=== PATIENT | female | born 1935 | race Caucasian/White ===

== ENCOUNTER → 2020-06-14 | Outpatient (REF) | payer MEDICARE ==
[2020-07-28 08:08] LABS: Lyme Disease IgG/IgM Antibodie See Separate Report
[2020-08-01 13:25] LABS: ALBUMIN 3.5 GM/DL (3.2-5.2); BILIRUBIN,TOTAL 0.7 MG/DL (0.2-1.0); CALCIUM LEVEL 8.7 MG/DL (8.8-10.2); CREATININE FOR GFR 1.64 MG/DL (0.55-1.30); GLOMERULAR FILTRATION RATE 31.9 (>32); MAGNESIUM LEVEL 2.3 MG/DL (1.8-2.4); POTASSIUM SERUM 4.1 MEQ/L (3.5-5.1); THYROID STIMULATING HORMONE 2.38 uIU/ML (0.358-3.740); TOTAL PROTEIN 6.9 GM/DL (6.4-8.2)
[2020-08-01 18:09] LABS: HEMATOCRIT 29.9 % (36.0-47.0); HEMOGLOBIN 9.5 g/dl (12.0-15.5); MEAN CORPUSCULAR HEMOGLOBIN 30.4 pg (27.0-33.0); MEAN CORPUSCULAR HGB CONC 31.8 g/dl (32.0-36.5); MEAN CORPUSCULAR VOLUME 95.8 fl (80.0-96.0); PLATELET COUNT, AUTOMATED 221 10^3/uL (150-450); RED BLOOD COUNT 3.12 10^6/uL (4.00-5.40); WHITE BLOOD COUNT 5.3 10^3/uL (4.0-10.0)
== END ==
LOC: M LABDRAWC 14:38
PROVIDERS: ATTEND Family Medicine
DX: R53.81 Other malaise (principal); I50.9 Heart failure, unspecified; R25.2 Cramp and spasm

== ENCOUNTER 2021-06-04 16:39 | Inpatient (IN) | payer MEDICARE ==
[~2021-06-04] VITALS: Ht 188 cm; Wt 69.2 kg
--- NOTE | 2021-06-04 17:20 | REPVR ---
PROCEDURE INFORMATION: Exam: CT Head Without Contrast Exam date and time: 06/04/2021 5:01 PM Age: 85 years old Clinical indication: Injury or trauma; Fall; Blunt trauma (contusions or hematomas); Additional info: Fall/blood thinners TECHNIQUE: Imaging protocol: Computed tomography of the head without contrast. Radiation optimization: All CT scans at this facility use at least one of these dose optimization techniques: automated exposure control; mA and/or kV adjustment per patient size (includes targeted exams where dose is matched to clinical indication); or iterative reconstruction. COMPARISON: No relevant prior studies available. FINDINGS: Brain: There are global involutional changes of the brain which are in keeping with the patient's age. There is no acute intracranial hemorrhage or abnormal extra-axial fluid collection identified. There is no intracranial mass effect or shift of midline structures. The king-white differentiation is preserved throughout. Cerebral ventricles: There is no sulcal or ventricular effacement. The basilar cisterns are open. No hydrocephalus. Paranasal sinuses: Visualized sinuses are unremarkable. No fluid levels. Mastoid air cells: Visualized mastoid air cells are well aerated. Bones/joints: No calvarial fracture or destructive osseous lesions are seen. IMPRESSION: No acute intracranial pathology identified by CT. Electronically signed by: Didi Berrios On 06/04/2021 17:19:23 PM
--- NOTE | 2021-06-04 17:26 | REPVR ---
PROCEDURE INFORMATION: Exam: CT Cervical Spine Without Contrast Exam date and time: 06/04/2021 5:01 PM Age: 85 years old Clinical indication: Injury or trauma; Fall; Blunt trauma; Additional info: Fall/blood thinners TECHNIQUE: Imaging protocol: Computed tomography images of the cervical spine without contrast. Radiation optimization: All CT scans at this facility use at least one of these dose optimization techniques: automated exposure control; mA and/or kV adjustment per patient size (includes targeted exams where dose is matched to clinical indication); or iterative reconstruction. COMPARISON: No relevant prior studies available. FINDINGS: Bones/joints: No anterior wedging deformity. No acute lucent fracture lines visualized. No destructive osseous lesions are seen. There are diffuse spondylitic changes of the cervical spine and cervical facet arthropathy. Spondylitic changes are worst at the C4-C5 through C6-C7 levels. There is anterolisthesis at C7-T1. Discs/Spinal canal/Neural foramina: Spondylitic disc bulges cause moderate to severe central stenosis at C4-C5, severe central stenosis at C5-C6, moderate to severe at C6-C7. Neural foraminal stenosis is seen at the C3-C4 through C7-T1 levels. Lungs: There is a large right pleural effusion with compressive atelectasis seen at the right lung apex. IMPRESSION: 1. No acute cervical spinal injury demonstrated by CT. 2. Degenerative changes of the cervical spine, as above. 3. Large right pleural effusion with associated compressive atelectasis. Electronically signed by: Didi Berrios On 06/04/2021 17:26:00 PM
--- NOTE | 2021-06-04 17:43 | REP ---
INDICATION: syncope. COMPARISON: No comparison chest x-ray TECHNIQUE: Two views.. FINDINGS: There is moderate cardiomegaly. There are bilateral pleural effusions right greater than left. Pulmonary vasculature is cephalized. No definite infiltrate is seen. Monitoring electrodes are noted. No acute bony abnormality is seen. IMPRESSION: CHF pattern with bilateral effusions, right greater than left and moderate cardiomegaly. Vascular cephalization.. <Electronically signed by Tramaine Arcos > 06/04/21 [id number]
[2021-06-04 18:05] LABS: BASO # 0.1 10^3/uL (0.0-0.2); BASO % 0.8 % (0.0-1.0); EOS % 0.5 % (0.0-3.0); HEMATOCRIT 37.4 % (36.0-47.0); LYMPH # 0.7 10^3/uL (1.5-5.0); LYMPH % 11.3 % (24.0-44.0); MEAN CORPUSCULAR HEMOGLOBIN 30.7 pg (27.0-33.0); MEAN CORPUSCULAR HGB CONC 32.1 g/dl (32.0-36.5); MEAN CORPUSCULAR VOLUME 95.7 fl (80.0-96.0); MONO # 1.1 10^3/uL (0.0-0.8); MONO % 18.3 % (2.0-8.0); NEUTROPHILS # 4.1 10^3/uL (1.5-8.5); NEUTROPHILS % 68.8 % (36.0-66.0); PLATELET COUNT, AUTOMATED 161 10^3/uL (150-450); RED BLOOD COUNT 3.91 10^6/uL (4.00-5.40); WHITE BLOOD COUNT 5.9 10^3/uL (4.0-10.0)
[2021-06-04 18:41] LABS: RSV AMPLIFICATION NEGATIVE (NEGATIVE)
[2021-06-04 18:41] LABS: CREATININE FOR GFR 1.53 MG/DL (0.55-1.30); GLOMERULAR FILTRATION RATE 34.5 (>32); POTASSIUM SERUM 4.1 MEQ/L (3.5-5.1)
[2021-06-04 18:42] LABS: CALCIUM LEVEL 8.3 MG/DL (8.8-10.2); CK-MB VALUE MASS 4.6 NG/ML (<3.6); FREE T4 1.06 NG/DL (0.76-1.46); MAGNESIUM LEVEL 2.4 MG/DL (1.8-2.4); MB/CK RELATIVE INDEX 1.56 (< OR =4); THYROID STIMULATING HORMONE 1.94 uIU/ML (0.358-3.740); TROPONIN I 0.04 NG/ML (< 0.10)
[2021-06-04] MEDS ORDERED: RASA1TAB PO (18:59)
[2021-06-04] MEDS ORDERED: FLOM0.4C39 PO (18:59)
[2021-06-04] MEDS ORDERED: METO1TAB32 PO (18:59)
[2021-06-04] MEDS ORDERED: SENO8.6T5 PO (18:59)
[2021-06-04] MEDS ORDERED: DONETAB6 PO (18:59)
[2021-06-04] MEDS ORDERED: XARE15TA PO (18:59)
[2021-06-04] MEDS ORDERED: B-12100010 PO (18:59)
[2021-06-04] MEDS ORDERED: TORS5TAB2 PO (18:59)
[2021-06-04] MEDS ORDERED: vitamin d3 PO (18:59)
[2021-06-04] MEDS ORDERED: CARB10TA6 PO (18:59)
[2021-06-04] MEDS ORDERED: FINA5TAB2 PO (18:59)
[2021-06-04 19:44] LABS: D-DIMER QUANT 2025.97 ng/ml (<500)
[2021-06-04] MEDS ORDERED: D31000TA2 PO (20:18)
[2021-06-04 20:19] LABS: ALBUMIN 3.6 GM/DL (3.2-5.2); BILIRUBIN,DIRECT 0.4 MG/DL (0.0-0.2); BILIRUBIN,TOTAL 1.3 MG/DL (0.2-1.0); TOTAL PROTEIN 7.3 GM/DL (6.4-8.2)
[2021-06-04] MEDS ORDERED: TORS20TA2 PO (20:39)
[2021-06-04] MEDS ORDERED: ENOXAPARIN 100MG/1ML SYRINGE (J1650 PER 10MG) SC SCH (21:00)
[2021-06-04] MEDS ORDERED: FUROSEMIDE 100MG/10ML VIAL (J1940) IV ONE (21:00)
[2021-06-04] MEDS ORDERED: SENOKOT S TAB PO PRN (21:05)
[2021-06-04] MEDS ORDERED: dexameTHASONE 20MG/5ML VIAL (J1100 PER 1MG) IV ONE (21:05)
[2021-06-04 21:35] LABS: C REACTIVE PROTEIN QUANTITATIV 1.08 MG/DL (0.00-0.30)
--- NOTE | 2021-06-04 22:07 | HPEPDOC ---
[facility] Medical History & Physical Date of Admission Jun 04, 2021 Date of Service: Jun 04, 2021 History and Physical CHIEF COMPLAINT: Scratchy throat fever 101 HISTORY OF PRESENT ILLNESS: 85-year-old male with history of Parkinson's disease congestive heart failure chronic atrial flutter mitral valve regurgitation chronic kidney disease stage III bilateral pleural effusions needing thoracentesis was in her usual state of health until 2 weeks ago when he was exposed to his son-in-law with coronavirus during a family reunion now presents with 2-day history of fever 101 scratchy throat and exertional dyspnea without chest pain nausea vomiting abdominal pain diarrhea but admits to dry mouth loss of taste and constipation patient has had increasing weakness which he attributed to his Parkinson's he fell and tripped on the steps the other day while he got his foot caught on something and had a fainting spell. He currently is visiting for the summer and lives in his camp near [facility] in [facility] but usually lives in [place], [place]. patient does have a history of congestive heart failure and chronic kidney disease according to the patient his primary care had decrease his torsemide from 40 mg daily to 30 mg due to worsening renal dysfunction he denies any paroxysmal nocturnal dyspnea he usually sleeps on his back with 1-2 pillows he has not had any lower extremity edema his dry weight is usually 154 pounds he does not keep to a salt or fluid restriction but he is compliant with his medications. In the emergency room patient was found to be positive for coronavirus he was saturating 95 to 96% on room air chest x-ray showed increased vascular distribution CHF pattern, CT head negative for acute intracranial abnormality CT cervical spine no acute fracture or dislocation. Patient had increased inflammatory markers and is being admitted as an inpatient for 2 midnights for coronavirus, CHF exacerbation with unknown ejection fraction, large right pleural effusion requiring thoracentesis. 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 REVIEW OF SYSTEMS: 10 point review of systems negative aside from positive findings in HPI HOME MEDICATIONS: Please see below. PHYSICAL EXAMINATION: VITAL SIGNS: See below GENERAL APPEARANCE: No distress able to speak in full sentences without conversational dyspnea no use of accessory respiratory muscles no cyanosis icterus or jaundice HEENT: Face is symmetric tongue is midline positive JVD no carotid bruit moist mucous membranes no cervical lymphadenopathy or thyromegaly CARDIOVASCULAR: S1-S2 irregularly irregular systolic ejection murmur at the apex LUNGS: Decreased breath sounds right with dullness to percussion decrease vocal fremitus on the right Egophony noted on the right. Bilateral rales right greater than left . ABDOMEN: Positive bowel sounds soft nontender nondistended no hepatosplenomegaly no rebound or guarding EXTREMITIES: No pitting edema bilaterally no cyanosis or clubbing LABORATORY DATA: See below. IMAGING: See below MICROBIOLOGY: Please see below. ASSESSMENT: 85-year-old full code with history of congestive heart failure unknown ejection fraction Parkinson's chronic A. fib a flutter mitral valve regurgitation chronic kidney disease stage III bilateral pleural effusions requiring thoracentesis in the past presents to the emergency room with 2-day history of a scratchy throat, loss of taste, and fever of 101 with recent exposure 2 weeks ago to a son-in-law with coronavirus during a family reunion. patient is visiting the area and currently lives in a camper near [facility] in [place]. Patient is being admitted as an inpatient for the following acute issues: Coronavirus 19 infection -Isolation precautions. Titrate oxygen to keep saturations above 90%. IV Decadron 6 mg daily, IV remdesivir, patient may be restarted on his Xarelto after thoracentesis for large right pleural effusion, aspirin 81 mg daily after thoracentesis, monitor inflammatory markers. Acute on chronic congestive heart failure exacerbation with unknown ejection fraction -Obtain records from patient's primary care physician in [place], [place]. -Lasix intravenously every 6 hourly 2 L fluid restriction strict I's and O's and daily weights monitor patient's creatinine daily and adjust Lasix accordingly -Cycle cardiac markers every 6 hourly to rule out acute coronary syndrome. Check two-dimensional echocardiogram. Chronic kidney disease stage III -Obtain records from patient's primary care physician -Avoid nephrotoxins renally dose all medications monitor patient's creatinine daily while being diuresed Chronic atrial fibrillation -Rate controlled. Hold Xarelto until patient's thoracentesis is completed tomorrow. May resume Xarelto and low-dose aspirin after thoracentesis -Telemetry monitoring. Chronic mitral valve regurgitation -2D echo Large right pleural effusion secondary to CHF exacerbation requiring thoracentesis -Held patient's Xarelto until thoracentesis is completed -CSF fluid analysis Diet: 2 g sodium renal diet. 2 L fluid restriction CODE STATUS: Full code Healthcare proxy daughter Catrachita Connelly DVT prophylaxis: Compression stockings. May resume Xarelto after thoracentesis is completed. Vital Signs Vital Signs Date Time Temp Pulse Resp B/P (MAP) Pulse Ox O2 Delivery O2 Flow Rate FiO2 06/04/21 21:24 85 93 Room Air 06/04/21 21:00 119/70 (86) 06/04/21 16:40 98.1 20 Laboratory Data Labs 24H Laboratory Tests 2 06/04/21 17:09: Immature Granulocyte % (Auto) 0.3, Neutrophils (%) (Auto) 68.8H, Lymphocytes (%) (Auto) 11.3L, Monocytes (%) (Auto) 18.3H, Eosinophils (%) (Auto) 0.5, Basophils (%) (Auto) 0.8, Neutrophils # (Auto) 4.1, Lymphocytes # (Auto) 0.7L, Monocytes # (Auto) 1.1H, Eosinophils # (Auto) 0.0, Basophils # (Auto) 0.1, Nucleated Red Blood Cells % (auto) 0.0, Anion Gap 6L, Glomerular Filtration Rate 34.5, Calcium Level 8.3L, Magnesium Level 2.4, Ferritin 151, Total Bilirubin 1.3H, Direct Bilirubin 0.4H, Aspartate Amino Transf (AST/SGOT) 55H, Alanine Aminotransferase (ALT/SGPT) 33, Alkaline Phosphatase 129H, Lactate Dehydrogenase 331H, Total Creatine Kinase 294H, Creatine Kinase MB 4.6H, Creatine Kinase MB Relative Index 1.56, Troponin I 0.04, C-Reactive Protein, Quantitative 1.08H, DC-Blp-Z-Type Natriuretic Peptide 9038H, Total Protein 7.3, Albumin 3.6, Albumin/Globulin Ratio 1.0L, Thyroid Stimulating Hormone (TSH) 1.940, Free Thyroxine 1.06 06/04/21 17:36: Fibrinogen 410, D-Dimer, Quantitative 2025.97H, Lactic Acid Level 1.9, Coronavirus (COVID-19)(PCR) POSITIVEA, Influenza Type A (RT-PCR) NEGATIVE, Influenza Type B (RT-PCR) NEGATIVE, Respiratory Syncytial Virus (PCR) NEGATIVE 06/04/21 19:40: Urine Color YELLOW, Urine Appearance CLEAR, Urine pH 6.0, Urine Specific [place] 1.008, Urine Protein NEGATIVE, Urine Glucose (UA) NEGATIVE, Urine Ketones NEGATIVE, Urine Blood 1+H, Urine Nitrite NEGATIVE, Urine Bilirubin NEGATIVE, Urine Urobilinogen 0.2, Urine Leukocyte Esterase NEGATIVE, Urine WBC (Auto) 0, Urine RBC (Auto) 3, Urine Hyaline Casts (Auto) 2, Urine Bacteria (Auto) NEGATIVE, Urine Squamous Epithelial Cells 0, Urine Sperm (Auto) , Procalcitonin <0.05 CBC/BMP Laboratory Tests 06/04/21 17:09 Microbiology Microbiology 06/04/21 Blood Culture, Received Pending 06/04/21 Blood Culture, Received Pending Home Medications Scheduled Carbidopa/Levodopa (Carbidopa-Levo 10-100 mg Odt) 1 Each Tab.rapdis, 2 TAB PO QID 0700, 1200, 1700, 2200 Cholecalciferol (Vitamin D3) (Vitamin D3) 1,000 Unit Tablet, 2,000 UNITS PO DAILY Cyanocobalamin (Vitamin B-12) (Vitamin B-12) 1,000 Mcg Capsule, 1,000 MCG PO DAILY Donepezil Hcl (Donepezil HCl Odt) 10 Mg Tab.rapdis, 10 MG PO QHS Finasteride (Finasteride) 5 Mg Tablet, 5 MG PO DAILY Metoprolol Succinate (Metoprolol Succinate) 25 Mg Tab.er.24h, 25 MG PO QHS Rasagiline Mesylate (Rasagiline Mesylate) 1 Mg Tablet, 1 MG PO DAILY Rivaroxaban (Xarelto) 15 Mg Tablet, 15 MG PO QPM @ 1700 Tamsulosin HCl (Flomax) 0.4 Mg Capsule, 0.4 MG PO QHS Torsemide (Torsemide) 20 Mg Tablet, 30 MG PO DAILY Scheduled PRN Sennosides (Senokot) 8.6 Mg Tablet, 8.6 MG PO DAILY PRN for CONSTIPATION Allergies Coded Allergies: No Known Drug Allergies (Verified Allergy, Unknown, 06/04/21) A-FIB/CHADSVASC A-FIB History Current/History of A-Fib/PAF?: Yes Current PO Anticoag Therapy: No Age/Risk Factor Scoring CHADSVASC: CHADSVASC Response (Comments) Value Age Risk Factor Age >/= 75 years old 2 Gender Risk Factor Male 0 Hx of CHF Yes 1 Hx of HTN Yes 1 Hx of Stroke/TIA/or VTE No 0 Hx of Diabetes No 0 Hx of Vascular Disease No 0 Total 4 Treatment Treatment ordered: NONE Reason Anticoagulant not given: Recent/upcomin procedure IZZY MCKENNA MD Jun 04, 2021 21:58
[2021-06-04 22:40] LABS: INR 1.55; PARTIAL THROMBOPLASTIN TIME 33.9 SECONDS (24.2-38.5); PROTHROMBIN TIME 18.9 SECONDS (12.5-14.3)
[2021-06-04] MEDS ORDERED: REMDESIVIR 200 MG in NS 250 ML IV ONE (23:00)
[2021-06-04 23:10] VITALS: BP 123/77
[2021-06-05] VITALS (33 sets, daily range): BP systolic 70–168; BP diastolic 47–106; O2SAT 92–99
[2021-06-05] MEDS: TAMSULOSIN 0.4 MG CAP PO SCH ×2 (00:36→22:29)
[2021-06-05] MEDS: DONEPEZIL 5 MG TAB PO SCH ×2 (00:36→22:29)
[2021-06-05] MEDS: SINEMET 10-100 MG TAB PO SCH ×5 (00:36→22:29)
[2021-06-05] MEDS: METOPROLOL SUCC *XL* 25MG TAB (TopROL *XL*) PO SCH ×2 (00:36→21:00)
[2021-06-05] MEDS ORDERED: SODIUM CHLORIDE 0.9% INJ 10 ML SYR IV ONE (01:00)
[2021-06-05 05:00] LABS: BASO % 0.4 % (0.0-1.0); HEMATOCRIT 35.7 % (42.0-52.0); HEMOGLOBIN 11.5 g/dl (13.5-17.5); LYMPH # 0.4 10^3/uL (1.5-5.0); LYMPH % 8.2 % (24.0-44.0); MEAN CORPUSCULAR HEMOGLOBIN 30.5 pg (27.0-33.0); MEAN CORPUSCULAR HGB CONC 32.2 g/dl (32.0-36.5); MEAN CORPUSCULAR VOLUME 94.7 fl (80.0-96.0); MONO # 0.4 10^3/uL (0.0-0.8); MONO % 7.5 % (2.0-8.0); NEUTROPHILS # 3.9 10^3/uL (1.5-8.5); NEUTROPHILS % 83.5 % (36.0-66.0); PLATELET COUNT, AUTOMATED 155 10^3/uL (150-450); RED BLOOD COUNT 3.77 10^6/uL (4.30-6.10); WHITE BLOOD COUNT 4.6 10^3/uL (4.0-10.0)
[2021-06-05 05:30] LABS: CALCIUM LEVEL 8.1 MG/DL (8.8-10.2); CK-MB VALUE MASS 3.7 NG/ML (<3.6); CREATININE FOR GFR 1.48 MG/DL (0.70-1.30); GLOMERULAR FILTRATION RATE 48.3 (>35); MAGNESIUM LEVEL 2.5 MG/DL (1.8-2.4); MB/CK RELATIVE INDEX 1.47 (< OR =4); POTASSIUM SERUM 3.8 MEQ/L (3.5-5.1); TROPONIN I 0.04 NG/ML (< 0.10)
--- NOTE | 2021-06-05 06:32 | ECGEPIP ---
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
[2021-06-05] MEDS: FUROSEMIDE 40MG/4ML VIAL (J1940) IV SCH ×2 (08:44→16:08)
[2021-06-05] MEDS: VITAMIN D 1,000 INTERNATIONAL UNITS TABLET PO SCH (08:48)
[2021-06-05] MEDS: dexameTHASONE 20MG/5ML VIAL (J1100 PER 1MG) IV SCH (08:48)
[2021-06-05] MEDS: CYANOCOBALAMIN 500 MCG TAB PO SCH (08:49)
[2021-06-05] MEDS: FINASTERIDE 5 MG TAB PO SCH (08:50)
[2021-06-05] MEDS ORDERED: ASPIRIN 81MG ENTERIC TABLET PO SCH (09:00)
[2021-06-05] MEDS ORDERED: TORSEMIDE 20 MG TAB PO SCH (09:00)
[2021-06-05] MEDS ORDERED: ALBUTEROL SULFATE 2.5 MG/0.5 ML INH NEB SOLN INH PRN (11:15)
[2021-06-05] MEDS ORDERED: NS 1,000 ML IV SCH (11:15)
[2021-06-05] MEDS ORDERED: methylPREDNISolone 125MG 2ML VIAL IV PRN (11:15)
[2021-06-05] MEDS ORDERED: CASIRIVIMAB (REGN10933) 600 MG, IMDEVIMAB (REGN10987) 600 MG in NS 250 ML IV ONE (11:15)
[2021-06-05] MEDS ORDERED: EPINEPHrine INJ 1 MG/ML 1ML AMP IM PRN (11:15)
[2021-06-05] MEDS ORDERED: diphenhydrAMINE 50MG/ML VIAL (J1200) IV PRN (11:15)
[2021-06-05] MEDS ORDERED: ALBUTEROL 90 MCG/ACT 8GM HFA INHALER INH PRN (11:15)
--- NOTE | 2021-06-05 12:26 | IPNPDOC ---
Text Note Date of Service The patient was seen on 06/05/21. NOTE Subjective: Patient is an 85-year-old male history of Parkinson's disease, CHF, chronic atrial flutter, mitral valve regurgitation, chronic kidney disease stage III bilateral pleural effusions needing thoracentesis who was in his usual state of health until 2 weeks ago when he was exposed to his son-in-law with COVID-19 during a family reunion. Patient now presents with a 2-day history of fever of 101 with scratchy throat exertional dyspnea without chest pain. Patient was found to be positive for COVID-19. Patient was saturating 95 to 96% and chest x-ray showed increased vascular congestion. Patient was diagnosed with CHF exacerbation with an unknown ejection fraction. Patient is a large right pleural effusion. Patient is doing well but says when he gets up and walks around, he does feel very short of breath. Review of systems: General: Patient denies fevers HEENT: Patient denies headaches Cardiovascular: Patient denies chest pain Respiratory: Patient denies shortness of breath at rest but does report shortness of breath with exertion GI: Patient denies abdominal pain, nausea, vomiting, diarrhea : Patient denies increased frequency or pain with urination Extremities: Patient denies swelling or pain in extremities Neurological: Patient denies numbness or tingling in legs Physical exam: Vitals: See below General: Alert and oriented male patient who was sitting in bed when I walked in the room. Patient did not appear to be in any acute distress. HEENT: Normocephalic, atraumatic, moist mucous membranes. Neck: No lymphadenopathy or thyromegaly Cardiac: Regular rate and rhythm, no murmurs, normal S1, normal S2 Pulm: Crackles heard in the bilateral bases. Diminished lung sounds in the right base. Dullness to percussion in the right lower lung field. Tympanic to percussion upper lung velasquez on the right and entire lung velasquez on the left. Abd: Nondistended, nontender to palpation, normal bowel sounds Ext: No edema bilateral lower extremities Labs: See below Imaging: No new imaging has been performed Assessment/plan: 85-year-old male with a history of congestive heart failure with unknown ejection fraction who presents to the hospital with worsening dyspnea was thought to be secondary to a CHF exacerbation and COVID-19 1. Acute exacerbation of congestive heart failure with unknown ejection fraction. Echocardiogram was ordered and was performed today we are waiting on the read. Patient will continue with IV diuresis at this time. Patient will work with physical therapy and we will continue to monitor the patient. C ardiology records have been requested 2. COVID-19 infection. Isolation precautions have been placed. IV Decadron was started with IV remdesivir. Patient's Xarelto has been held until his thoracentesis can be performed. After this, the Xarelto will be started. Once the patient is discharged, he will be able to receive monoclonal antibodies for treatment of COVID-19. 3. Large right pleural effusion. Thoracentesis will be performed today. Orders are already in for analysis of the fluid. 4. Chronic atrial fibrillation. Rate controlled. Xarelto on hold until after thoracentesis. Continue telemetry monitoring. 5. Chronic kidney disease stage III. Avoid nephrotoxic agents and we will continue to monitor the patient's creatinine. DVT Prophylaxis: Teds and sequentials until Xarelto is restarted Disposition: Pending clinical improvement possible discharge next 24 to 48 hours VS,Nickbone, I+O VS, Fishbone, I+O Laboratory Tests 06/04/21 17:09 06/05/21 04:40 Vital Signs Date Time Temp Pulse Resp B/P (MAP) Pulse Ox O2 Delivery O2 Flow Rate FiO2 06/05/21 08:00 96 Room Air 06/05/21 08:00 97.2 68 20 109/67 (81) 06/05/21 04:00 2.0 I&O- Last 24 Hours up to 6 AM 06/05/21 06:00 Intake Total 100 ml Output Total 1450 ml Balance -1350 ml BRANDY SAHU DO Jun 05, 2021 12:26
[2021-06-05] MEDS ORDERED: LIDOCAINE 1% MDV 20ML VIAL As Ordered ONE (16:26)
--- NOTE | 2021-06-05 17:50 | REP ---
INDICATION: S/P Right Thoracentesis for Pleural Effusion. COMPARISON: PA lateral chest 06/04/2021 TECHNIQUE: AP portable seated FINDINGS: Exam performed after thoracentesis of 600 cc on the right. There is a smaller effusion compared to the examination yesterday. Left effusion is unchanged. There is no pneumothorax or pneumomediastinum. Some bibasilar atelectatic changes are again seen. Heart size mildly enlarged there is left atrial and ventricular enlargement. The aorta is mildly tortuous. No aneurysm. Airway intact bones unremarkable. IMPRESSION: 1. Status post right thoracentesis with 600 cc removed and visibly smaller right effusion. A left effusion is seen and unchanged from yesterday, smaller than the a right than an now. 2. Heart mildly enlarged with some venous hypertension but no steffi edema. No other new finding or interval change. 3. No right-sided pneumothorax <Electronically signed by Nitish Sotomayor > 06/05/21 [id number]
[2021-06-05 18:09] LABS: PH BODY FLUID 7.754 UNITS (NOT ESTABLISHED); SOURCE, BODY FLUID pH PLEURAL
[2021-06-05 18:31] LABS: AMYLASE, BODY FLUID 52 U/L (NOT ESTABLISHED); CHOLESTEROL, BODY FLUID < 50 MG/DL (NOT ESTABLISHED); LDH, BODY FLUID 76 U/L (NOT ESTABLISHED); SOURCE, BODY FLUID ALBUMIN PLEURAL; SOURCE, BODY FLUID AMYLASE PLEURAL; SOURCE, BODY FLUID CHOL PLEURAL; SOURCE, BODY FLUID GLUCOSE PLEURAL; SOURCE, BODY FLUID LDH PLEURAL; SOURCE, BODY FLUID TOT PROTEIN PLEURAL; SOURCE, BODY FLUID TRIG PLEURAL; TOTAL PROTEIN, BODY FLUID 1.7 G/DL (NOT ESTABLISHED); TRIGLYCERIDE, BODY FLUID 4 MG/DL (NOT ESTABLISHED)
[2021-06-05 18:43] LABS: PLEURAL FL COLOR PALE YELLOW (COLORLESS); SOURCE, BODY FLUID PLEURAL
[2021-06-05 18:44] LABS: APPEARANCE, BODY FLUID CLEAR (CLEAR)
[2021-06-05 19:22] LABS: APPEARANCE, URINE CLEAR (CLEAR); BACTERIA, URINE AUTO NEGATIVE (NEGATIVE); BILIRUBIN, URINE AUTO NEGATIVE (NEGATIVE); BLOOD, URINE BLOOD 2+ (NEGATIVE); COLOR, URINE STRAW (YELLOW); GLUCOSE, URINE (UA) AUTO NEGATIVE (NEGATIVE); KETONE, URINE AUTO NEGATIVE (NEGATIVE); LEUKOCYTE ESTERASE, URINE AUTO NEGATIVE (NEGATIVE); MUCUS, URINE SMALL (NEGATIVE); NITRITE, URINE AUTO NEGATIVE (NEGATIVE); PROTEIN, URINE AUTO NEGATIVE (NEGATIVE); RBC, URINE AUTO 128 /HPF (0-3); SPECIFIC GRAVITY URINE AUTO 1.006 (1.002-1.035); SQUAMOUS EPITHELIAL CELL UR AU 0 /HPF (0-6); UROBILINOGEN, URINE AUTO 0.2 mg/dL (0.0-2.0); WBC, URINE AUTO 2 /HPF (0-3)
[2021-06-05] MEDS ORDERED: NOREPINEPHRINE 4 MG/4 ML AMP As Ordered ONE (19:55)
[2021-06-05] MEDS ORDERED: NOREPINEPHRINE BITARTRATE 8 MG in D5W 492 ML IV SCH (20:00)
[2021-06-05] MEDS ORDERED: RIVAROXABAN 15 MG TAB (XARELTO) PO SCH (21:00)
--- NOTE | 2021-06-05 22:21 | REPVR ---
PROCEDURE INFORMATION: Exam: XR Chest Exam date and time: 06/05/2021 9:38 PM Age: 85 years old Clinical indication: Device placement; Other: Central line placement TECHNIQUE: Imaging protocol: XR of the chest. Views: 1 view. COMPARISON: ND PORTABLE CHEST X-RAY 06/05/2021 5:12 PM FINDINGS: Lungs: Unremarkable. No consolidation. Pleural spaces: Bilateral pleural effusions unchanged in comparison to the exam performed earlier in the day. No pneumothorax. Heart/Mediastinum: Probable cardiomegaly. Vasculature: Right internal jugular line tip located in the superior vena cava. Bones/joints: The spine demonstrates moderate degenerative changes. Osteoporosis. IMPRESSION: 1. Bilateral pleural effusions unchanged in comparison to the exam performed earlier in the day. 2. Probable cardiomegaly. Electronically signed by: Georges Garzon On 06/05/2021 22:20:51 PM
[2021-06-05] MEDS: REMDESIVIR 100 MG in NS 250 ML IV SCH (22:50)
[2021-06-05] MEDS: NOREPINEPHRINE BITARTRATE 8 MG in D5W 492 ML IV SCH ×2 (23:15→23:55)
[2021-06-06] VITALS (18 sets, daily range): BP systolic 71–134; BP diastolic 50–86; O2SAT 95–100
[2021-06-06] MEDS: SODIUM CHLORIDE 0.9% INJ 10 ML SYR IV SCH (00:11)
[2021-06-06] MEDS: SINEMET 10-100 MG TAB PO SCH ×4 (06:09→21:35)
[2021-06-06 06:28] LABS: HEMATOCRIT 34.6 % (42.0-52.0); HEMOGLOBIN 11.3 g/dl (13.5-17.5); LYMPH # 0.5 10^3/uL (1.5-5.0); LYMPH % 5.8 % (24.0-44.0); MEAN CORPUSCULAR HEMOGLOBIN 30.6 pg (27.0-33.0); MEAN CORPUSCULAR HGB CONC 32.7 g/dl (32.0-36.5); MEAN CORPUSCULAR VOLUME 93.8 fl (80.0-96.0); MONO # 0.9 10^3/uL (0.0-0.8); MONO % 9.8 % (2.0-8.0); NEUTROPHILS # 7.5 10^3/uL (1.5-8.5); NEUTROPHILS % 84.1 % (36.0-66.0); PLATELET COUNT, AUTOMATED 164 10^3/uL (150-450); RED BLOOD COUNT 3.69 10^6/uL (4.30-6.10); WHITE BLOOD COUNT 8.9 10^3/uL (4.0-10.0)
[2021-06-06 06:38] LABS: INR 1.31; PROTHROMBIN TIME 16.6 SECONDS (12.5-14.3)
[2021-06-06 06:39] LABS: PARTIAL THROMBOPLASTIN TIME 32.5 SECONDS (24.2-38.5)
[2021-06-06 06:53] LABS: BLOOD UREA NITROGEN 37 MG/DL (7-18); CARBON DIOXIDE LEVEL 33 MEQ/L (21-32); CHLORIDE LEVEL 103 MEQ/L (98-107); CREATININE FOR GFR 1.14 MG/DL (0.70-1.30); GLOMERULAR FILTRATION RATE > 60.0 (>35); GLUCOSE, FASTING 94 MG/DL (70-100); POTASSIUM SERUM 3.5 MEQ/L (3.5-5.1); SODIUM LEVEL 142 MEQ/L (136-145)
[2021-06-06 06:54] LABS: ALBUMIN 2.7 GM/DL (3.2-5.2); ALT/SGPT 23 U/L (12-78); BILIRUBIN,DIRECT 0.3 MG/DL (0.0-0.2); BILIRUBIN,TOTAL 0.7 MG/DL (0.2-1.0); CALCIUM LEVEL 8.6 MG/DL (8.8-10.2); CPK CREATINE PHOSPHOKINASE 229 U/L (39-308); FERRITIN 159 NG/ML (26-388); LDH LACTATE DEHYDROGENASE 293 U/L (87-241); MAGNESIUM LEVEL 2.3 MG/DL (1.8-2.4); NT-PRO BNP 9862 PG/ML (<450); TOTAL PROTEIN 6.1 GM/DL (6.4-8.2); TROPONIN I 0.04 NG/ML (< 0.10)
[2021-06-06] MEDS: dexameTHASONE 20MG/5ML VIAL (J1100 PER 1MG) IV SCH (08:30)
[2021-06-06] MEDS: CYANOCOBALAMIN 500 MCG TAB PO SCH (08:31)
[2021-06-06] MEDS: VITAMIN D 1,000 INTERNATIONAL UNITS TABLET PO SCH (08:31)
[2021-06-06] MEDS: FINASTERIDE 5 MG TAB PO SCH (08:32)
[2021-06-06] MEDS ORDERED: FUROSEMIDE 40MG/4ML VIAL (J1940) IV SCH (09:00)
--- NOTE | 2021-06-06 09:16 | REP ---
INDICATION: right pleural effusion. COMPARISON: None. TECHNIQUE: The procedure was performed under the direct supervision of Dr. Pina. The procedure was performed in the ICU at the bedside. The risks and benefits of the procedure were explained to the patient and informed consent was obtained. The right pleural effusion was localized using ultrasound guidance. The skin was prepped and draped in a sterile fashion. 4 mL of 1% lidocaine was used as a local anesthetic. An 8 Spanish multi side hole catheter was inserted using trocar technique. 600 mL of yellow fluid was withdrawn with a sample sent to the lab for analysis. At this point the patient's blood pressure dropped and his O2 saturations dropped to approximately 85%. The procedure was then discontinued. FINDINGS: None IMPRESSION: Ultrasound-guided right thoracentesis yielding 600 mL of yellow fluid. <Electronically signed by Heriberto Frias > 06/06/21 0809 <Electronically signed by Jose Pina > 06/06/21 0916
--- NOTE | 2021-06-06 11:24 | RO ---
OPERATIVE NOTE DATE OF OPERATION: 06/04/2021 PREOPERATIVE DIAGNOSIS: IV access needed for fluid management/vasopressors. POSTOPERATIVE DIAGNOSIS: IV access needed for fluid management/vasopressors. PROCEDURE: Right internal jugular vein central line placement. SURGEON: Juan Ramon Mckeon M.D. ANESTHESIA: Local lidocaine. BRIEF PROCEDURE SUMMARY: The patient was prepped and draped in the usual sterile fashion. The patient was placed in the Trendelenburg position. Finder needle was placed into the internal jugular vein and the wire passed down this without difficulty. Dilator and then triple-lumen was placed over the top of this. It was sutured in place at 17 cm. Postoperative chest x-ray reveals good placement. All ports were aspirated and flushed without difficulty. Dry sterile dressings were applied.
--- NOTE | 2021-06-06 13:45 | ECHO ---
ECHOCARDIOGRAM DATE OF PROCEDURE: 06/05/2021 Age: Gender: Height: 180 cm Weight: 69 kg REFERRING PHYSICIAN: Dr. Madisyn Mcgregor INDICATION: Heart failure, unspecified, COVID-19. 2D MEASUREMENTS: Ventricular septum 2.28 cm Posterior wall 2.00 cm Left ventricle diastole 3.4 cm Left atrium 4.1 cm Left atrial volume index 40 Aortic root 3.4 cm Right ventricle 2.0 cm Inferior vena cava 1.9 cm with approximately 50% respiratory variation DOPPLER MEASUREMENTS: No aortic stenosis. No aortic regurgitation. Aortic valve velocity 129 cm/s LVOT velocity 98.4 cm/s LVOT VTI 17.9 cm Moderate tricuspid regurgitation. No mitral stenosis. Mitral E velocity 78.4 cm/s Mitral A velocity 35.6 cm/s Mitral deceleration time 209 msec Very mild tricuspid regurgitation. Estimated right ventricle systolic pressure 37 mmHg Estimated right atrial pressure 37 mmHg No pulmonic regurgitation. Pulmonary acceleration time 103 msec MITRAL ANNULAR TISSUE DOPPLER: Not performed. DESCRIPTION: Rhythm was sinus. Image quality was fair. This was a 2D, M mode, color flow Doppler, and pulse wave Doppler examination. CONCLUSIONS: 1. Severe concentric left ventricular hypertrophy. Subtle hypokinesis of the basal and mid left ventricular (LV) segments with normal contraction of the left ventricle apex. Normal overall LV systolic function. Left ventricular ejection fraction (LVEF) 70% by visual assessment. Reduced peak longitudinal strain in the basal and mid LV segments and normal at the apical level. Restricted LV diastolic filling pattern (grade 3 or grade 4 LV diastolic dysfunction). 2. Severe left atrial dilatation by left atrial volume index. 3. Normal right ventricle size. Severe hypertrophy of the right ventricle free wall. Normal right ventricle systolic function, suggestive of mild elevation of pulmonary artery systolic pressure and estimated right ventricle systolic pressure. Severe right atrial dilatation. 4. Mild mitral annular calcification. Moderate mitral regurgitation. No mitral stenosis. 5. Pleural effusions. 6. Tiny pericardial effusion. 7. Mild aortic valve sclerosis of a 3-cuspid aortic valve. No aortic regurgitation.
--- NOTE | 2021-06-06 13:50 | IPNPDOC ---
Text Note Date of Service The patient was seen on 06/06/21. NOTE Subjective: 85-year-old male with a history of Parkinson's disease, CHF, chronic atrial flutter, mitral valve regurgitation, chronic kidney disease stage III, bilateral pleural effusions needing thoracentesis who presented to the emergency department with CHF exacerbation and was found to be COVID-19 positive. Patient had an episode of hypotension overnight that required the patient to have a central line placed with Levophed being started. Patient was on Levophed for ab out 20 minutes before this was discontinued as blood pressure responded and became hypertensive. Patient has had a few episodes of hypotension throughout the morning today but is otherwise feeling much better. Patient was having some burning with urination and some gross blood but this has also improved. Review of systems: General: Patient denies fevers HEENT: Patient denies headaches Cardiovascular: Patient denies chest pain Respiratory: Patient denies shortness of breath, cough GI: Patient denies abdominal pain, nausea, vomiting, diarrhea : Patient denies increased frequency or pain with urination Extremities: Patient denies swelling or pain in extremities Neurological: Patient denies numbness or tingling in legs Physical exam: Vitals: See below General: Alert and oriented male patient who was laying in bed when I walked in the room. Patient did not appear to be in any acute distress. HEENT: Normocephalic, atraumatic, moist mucous membranes. Neck: No lymphadenopathy or thyromegaly Cardiac: Regular rate and rhythm, no murmurs, normal S1, normal S2 Pulm: Clear to auscultation bilaterally. No wheezes, rhonchi, rales Abd: Nondistended, nontender to palpation, normal bowel sounds Ext: No edema bilateral lower extremities Labs: See below Imaging: Chest x-ray performed on 06/03/2021 status post his right thoracentesis was reported to show status post right thoracentesis with 600 cc removed and visibly smaller right effusion. A left effusion is seen unchanged from yesterd ay, smaller than the right. Heart mildly enlarged some venous hypertension but no steffi edema. No new finding or interval change. No right-sided pneumothorax. Chest x-ray performed on 06/03/2021 status post central line placement was aborted show bilateral pleural effusions unchanged comparison to exam performed earlier in the day. Probable cardiomegaly. Assessment/plan: 85-year-old male with history of congestive heart failure with unknown ejection fraction presented to hospital with worsening dyspnea thought to be secondary to a congestive heart failure exacerbation and COVID-19 1. Acute exacerbation of congestive heart failure with unknown ejection fraction. Echocardiogram was performed yesterday and the read is still pending. Patient had some episodes of hypotension which may be secondary to overdiuresis. Diuretics will be held at this time. Patient will work with physical therapy. 2. Hypotension. This may be due to overdiuresis and/or the patient's Parkinson's disease. We will continue to monitor at this time. Central line is in place if vasopressors are necessary. 3. COVID-19 infection. Isolation precautions in place. IV Decadron and IV remdesivir have been started. Once the patient is able to be discharged in the hospital he will receive monoclonal antibody treatments. 4. Large right pleural effusion, resolved. Thoracentesis performed yesterday and showed a transudative effusion. 5. Chronic atrial fibrillation. Rate controlled. Xarelto restarted. 6. Chronic kidney disease stage III. Avoid nephrotoxic agents. DVT Prophylaxis: Fully anticoagulated with Xarelto Disposition: Possible discharge tomorrow VS,Aminata, I+O VS, Aminaat, I+O Laboratory Tests 06/06/21 06:07 Vital Signs Date Time Temp Pulse Resp B/P (MAP) Pulse Ox O2 Delivery O2 Flow Rate FiO2 06/06/21 13:08 97.5 79 131/76 (94) 06/06/21 12:03 17 94 Room Air 06/05/21 04:00 2.0 I&O- Last 24 Hours up to 6 AM 06/06/21 06:00 Intake Total 2030 ml Output Total 2335 ml Balance -305 ml BRANDY SAHU DO Jun 06, 2021 13:50
[2021-06-06 17:08] LABS: MYCOPLASMA PNEUMONIAE IgG 1326 U/mL (0-99); MYCOPLASMA PNEUMONIAE IgM <770 U/mL (0-769)
[2021-06-06] MEDS ORDERED: RIVAROXABAN 15 MG TAB (XARELTO) PO SCH (18:00)
[2021-06-06] MEDS: TAMSULOSIN 0.4 MG CAP PO SCH (21:34)
[2021-06-06] MEDS: DONEPEZIL 5 MG TAB PO SCH (21:35)
[2021-06-06] MEDS: REMDESIVIR 100 MG in NS 250 ML IV SCH (23:51)
[2021-06-07] VITALS: BP 128/82
[2021-06-07] MEDS: SODIUM CHLORIDE 0.9% INJ 10 ML SYR IV SCH (01:00)
[2021-06-07 04:00] VITALS: BP 98/62
[2021-06-07] MEDS: SINEMET 10-100 MG TAB PO SCH ×2 (06:08→11:34)
[2021-06-07 06:28] LABS: BASO % 0.1 % (0.0-1.0); HEMATOCRIT 34.6 % (42.0-52.0); HEMOGLOBIN 11.2 g/dl (13.5-17.5); LYMPH # 0.9 10^3/uL (1.5-5.0); LYMPH % 7.9 % (24.0-44.0); MEAN CORPUSCULAR HEMOGLOBIN 30.7 pg (27.0-33.0); MEAN CORPUSCULAR HGB CONC 32.4 g/dl (32.0-36.5); MEAN CORPUSCULAR VOLUME 94.8 fl (80.0-96.0); NEUTROPHILS % 82.4 % (36.0-66.0); PLATELET COUNT, AUTOMATED 168 10^3/uL (150-450); RED BLOOD COUNT 3.65 10^6/uL (4.30-6.10); WHITE BLOOD COUNT 10.9 10^3/uL (4.0-10.0)
[2021-06-07 07:12] LABS: BLOOD UREA NITROGEN 36 MG/DL (7-18); CALCIUM LEVEL 8.4 MG/DL (8.8-10.2); CARBON DIOXIDE LEVEL 31 MEQ/L (21-32); CHLORIDE LEVEL 105 MEQ/L (98-107); CREATININE FOR GFR 1.01 MG/DL (0.70-1.30); GLOMERULAR FILTRATION RATE > 60.0 (>35); GLUCOSE, FASTING 77 MG/DL (70-100); MAGNESIUM LEVEL 2.5 MG/DL (1.8-2.4); POTASSIUM SERUM 3.6 MEQ/L (3.5-5.1); SODIUM LEVEL 143 MEQ/L (136-145)
[2021-06-07 07:48] VITALS: BP 94/76
[2021-06-07] MEDS ORDERED: PRED20TA PO (08:26)
[2021-06-07] MEDS ORDERED: TORSEMIDE 10 MG TABLET PO SCH (09:00)
[2021-06-07] MEDS ORDERED: RASAGILINE 1 MG PO SCH (09:00)
[2021-06-07] MEDS ORDERED: NEOSPORIN OINT 0.9 GM PKT TOP ONE (09:10)
[2021-06-07] MEDS: FINASTERIDE 5 MG TAB PO SCH (09:13)
[2021-06-07] MEDS: VITAMIN D 1,000 INTERNATIONAL UNITS TABLET PO SCH (09:13)
[2021-06-07] MEDS: CYANOCOBALAMIN 500 MCG TAB PO SCH (09:13)
[2021-06-07] MEDS: dexameTHASONE 20MG/5ML VIAL (J1100 PER 1MG) IV SCH (09:13)
--- NOTE | 2021-06-07 15:38 | DS.PDOC ---
Discharge Summary General Date of Admission Jun 04, 2021 at 20:53 Date of Discharge 06/07/2021 Attending Physician: BRANDY SAHU DO Specialist/Consultants Involve: Mike Pearce,Juan Ramon Bonds Discharge Summary PROCEDURES PERFORMED DURING STAY: Placement of a right internal jugular central venous catheter., Thoracentesis ADMITTING DIAGNOSES: 1. COVID-19 infection. 2. Acute on chronic heart failure exacerbation with unknown ejection fraction. 3. Chronic kidney disease stage III 4. Chronic atrial fibrillation 5. Chronic mitral valve regurgitation 6. Large right pleural effusion DISCHARGE DIAGNOSES: 1. Acute on chronic heart failure exacerbation with preserved ejection fraction 2. COVID-19 3. Chronic kidney disease history 4. Chronic atrial fibrillation 5. Chronic mitral valve regurgitation 6. Right pleural effusion, transudate of, resolved 7. Parkinson's disease COMPLICATIONS/CHIEF COMPLAINT: Covid 19. HISTORY OF PRESENT ILLNESS: Patient is an 85-year-old male who presented to the hospital with increased shortness of breath, fever of 101, and scratchy throat. Patient has a history of heart failure and his primary care provider recently decreased his torsemide from 40 mg to 30 mg due to worsening renal function. Patient denies any paroxysmal nocturnal dyspnea. Patient was at a family reunion where he was exposed to his son-in-law with COVID-19. Patient was found to be positive for COVID-19 and his chest x-ray showed increased vascular distribution and a CHF pattern. Patient was admitted to the hospital for acute congestive heart failure exacerbation most likely exacerbated due to COVID-19. HOSPITAL COURSE: Patient was diuresed while in the hospital. Patient does have a history of Parkinson's disease and would have low blood pressures at times that would resolve. Overnight on the first night of the patient's hospitalizat ion, patient became hypotensive and had a central line placed. Patient was on norepinephrine for very short time because his blood pressure rebounded and became hypertensive. Patient continues to do well throughout the day on 06/06/2021. Patient was no longer short of breath and had been fully diuresed. Patient was deemed ready for discharge on 06/07/2021. Patient was discharged to an outpatient bed in order to receive monoclonal antibodies. Patient was consented for monoclonal antibodies receive monoclonal antibodies before being officially discharged from the hospital. Patient was discharged on 06/07/2021. DISCHARGE MEDICATIONS: Please see below. ALLERGIES: Please see below. PHYSICAL EXAMINATION ON DISCHARGE: VITAL SIGNS: Please see below. General: Alert and oriented male patient who was sitting up in bed when I walked in. Patient did not appear to be in any acute distress. HEENT: Normocephalic, atraumatic, moist mucous membranes. Neck: No lymphadenopathy or thyromegaly Cardiac: Regular rate and rhythm, no murmurs, normal S1, normal S2 Pulm: Clear to auscultation bilaterally. No wheezes, rhonchi, rales Abd: Nondistended, nontender to palpation, normal bowel sounds Ext: No edema bilateral lower extremities LABORATORY DATA: Please see below. IMAGING: CT of the cervical spine without contrast performed on 06/04/2021 was reported to show no acute cervical spinal injury demonstrated by CT. Degenerative changes of the cervical spine, as above. Large right pleural effus ion with associated compressive atelectasis. CT of the head performed without contrast on 06/04/2021 was reported to show no acute intracranial pathology identified by CT. Chest x-ray performed on 06/04/2021 is reported to show CHF pattern with bilateral effusions, right greater than left and moderate cardiomegaly. Vascular cephalization. Chest x-ray performed on 06/03/2021 status post his right thoracentesis was reported to show status post right thoracentesis with 600 cc removed and visibly smaller right effusion. A left effusion is seen unchanged from yesterday, smaller than the right. Heart mildly enlarged some venous hypertension but no steffi edema. No new finding or interval change. No right-sided pneumothorax. Chest x-ray performed on 06/03/2021 status post central line placement was aborted show bilateral pleural effusions unchanged comparison to exam performed earlier in the day. Probable cardiomegaly. Echocardiogram performed on 06/05/2021 was reported to show severe concentric left ventricular hypertrophy. Subtle hypokinesis of the basal and mid left ventricular segments with normal contraction of the left ventricle apex. Normal overall LV systolic function. Left ventricular ejection fraction 70% by visual assessment. Reduced peak longitudinal strain in the basal and mid left ventricular segments and normal at the apical level. Restricted left ventricular diastolic filling pattern. Severe left atrial dilatation by left atrial volume index. Normal right ventricle size. Severe hypertrophy of the right ventricle free wall. Normal right ventricular systolic function, suggestive of mild elevation of pulmonary artery systolic pressure and estimated right ventricular systolic pressure. Severe right atrial dilatation. Mild mitral annular calcification. Moderate mitral regurgitation. No mitral stenosis. Pleural effusion. Tiny pericardial effusion. Mild aortic valve sclerosis with 3 cusp aortic valve. No aortic regurgitation. PROGNOSIS: Good ACTIVITY: As tolerated. DIET: 2 g sodium DISCHARGE PLAN: Discharge home DISPOSITION: Home Health Service. DISCHARGE INSTRUCTIONS: 1. Follow-up with [facility] on information about your COVID-19 quarantine. 2. Follow-up with your primary care provider within 3 to 5 days of discharge 3. Return to the emergency department if your symptoms worsen. ITEMS TO FOLLOWUP ON ON OUTPATIENT: 1. Completion of COVID-19 quarantine. DISCHARGE CONDITION: Stable. TIME SPENT ON DISCHARGE: 35 minutes. Vital Signs/I&Os Vital Signs Date Time Temp Pulse Resp B/P (MAP) Pulse Ox O2 Delivery O2 Flow Rate FiO2 06/07/21 08:00 Room Air 06/07/21 07:48 98.7 68 18 94/76 (82) 94 06/05/21 04:00 2.0 I&O- Last 24 Hours up to 6 AM 06/07/21 06:00 Intake Total 1440 ml Output Total 1775 ml Balance -335 ml Laboratory Data Labs 24H Laboratory Tests 2 06/07/21 06:04: Immature Granulocyte % (Auto) 0.6, Neutrophils (%) (Auto) 82.4H, Lymphocytes (%) (Auto) 7.9L, Monocytes (%) (Auto) 9.0H, Eosinophils (%) (Auto) 0.0, Basophils (%) (Auto) 0.1, Neutrophils # (Auto) 9.0H, Lymphocytes # (Auto) 0.9L, Monocytes # (Auto) 1.0H, Eosinophils # (Auto) 0.0, Basophils # (Auto) 0.0, Nucleated Red Blood Cells % (auto) 0.0, Anion Gap 7L, Glomerular Filtration Rate > 60.0, Calcium Level 8.4L, Magnesium Level 2.5H CBC/BMP Laboratory Tests 06/07/21 06:04 Microbiology Microbiology 06/05/21 Acid Fast Stain, Received Pending 06/05/21 Mycobacterial Culture, Received Pending 06/05/21 Fungal Smear, Received Pending 06/05/21 Fungal Culture, Received Pending 06/05/21 Gram Stain - Final, Complete 06/05/21 Anaerobic Culture - Final, Complete 06/05/21 Body Fluid Culture - Final, Complete 06/04/21 Blood Culture - Preliminary, Resulted No Growth after 48 hours. All Specime... 06/04/21 Blood Culture - Preliminary, Resulted No Growth after 48 hours. All Specime... Discharge Medications Scheduled Carbidopa/Levodopa (Carbidopa-Levo 10-100 mg Odt) 1 Each Tab.rapdis, 2 TAB PO QID, (Reported) 0700, 1200, 1700, 2200 Cholecalciferol (Vitamin D3) (Vitamin D3) 1,000 Unit Tablet, 2,000 UNITS PO DAILY, (Reported) Cyanocobalamin (Vitamin B-12) (Vitamin B-12) 1,000 Mcg Capsule, 1,000 MCG PO DAILY, (Reported) Donepezil Hcl (Donepezil HCl Odt) 10 Mg Tab.rapdis, 10 MG PO QHS, (Reported) Finasteride (Finasteride) 5 Mg Tablet, 5 MG PO DAILY, (Reported) Metoprolol Succinate (Metoprolol Succinate) 25 Mg Tab.er.24h, 25 MG PO QHS, (Reported) Prednisone (Prednisone) 20 Mg Tablet, 2 TAB PO DAILY Rasagiline Mesylate (Rasagiline Mesylate) 1 Mg Tablet, 1 MG PO DAILY, (Reported) Rivaroxaban (Xarelto) 15 Mg Tablet, 15 MG PO QPM, (Reported) @ 1700 Tamsulosin HCl (Flomax) 0.4 Mg Capsule, 0.4 MG PO QHS, (Reported) Torsemide (Torsemide) 20 Mg Tablet, 30 MG PO DAILY, (Reported) Scheduled PRN Sennosides (Senokot) 8.6 Mg Tablet, 8.6 MG PO DAILY PRN for CONSTIPATION, (Reported) Allergies Coded Allergies: No Known Drug Allergies (Verified Allergy, Unknown, 06/04/21) BRANDY SAHU DO Jun 07, 2021 15:38
== END 2021-06-07 11:55 | disposition home health service (06) | DRG 177 ==
LOC: M ED 16:39 → M ED INP 20:53 → EDSEX 20:53 → ENRESERV 21:54 → M ICU 23:03
PROVIDERS: ADMIT General Practice; ATTEND Family Medicine
PROC: 02HV33Z Insertion of Infusion Device into Superior Vena Cava, Percutaneous Approach (ICD-10-PCS; principal; 2021-06-04)
PROC: 0W993ZZ Drainage of Right Pleural Cavity, Percutaneous Approach (ICD-10-PCS; 2021-06-05)
DX: U07.1 COVID-19 (principal); I50.33 Acute on chronic diastolic (congestive) heart failure; I48.20 Chronic atrial fibrillation, unspecified; J90 Pleural effusion, not elsewhere classified; G20 Parkinson's disease; I34.0 Nonrheumatic mitral (valve) insufficiency; I95.9 Hypotension, unspecified; N18.30 Chronic kidney disease, stage 3 unspecified; Z79.01 Long term (current) use of anticoagulants; Z79.899 Other long term (current) drug therapy

== ENCOUNTER 2021-06-07 11:58 | Outpatient (CLI) | payer MEDICARE ==
[2021-06-07] VITALS (9 sets, daily range): BP systolic 96–131; BP diastolic 56–75
[~2021-06-07 11:58] MED LIST: B-12100010 PO; CARB10TA6 PO; D31000TA2 PO; DONETAB6 PO; FINA5TAB2 PO; FLOM0.4C39 PO; METO1TAB32 PO; PRED20TA PO; RASA1TAB PO; SENO8.6T5 PO; TORS20TA2 PO; TORS5TAB2 PO; XARE15TA PO; vitamin d3 PO
[2021-06-07] MEDS ORDERED: NS 1,000 ML IV SCH (12:35)
[2021-06-07] MEDS ORDERED: ALBUTEROL SULFATE 2.5 MG/0.5 ML INH NEB SOLN INH PRN (12:35)
[2021-06-07] MEDS ORDERED: diphenhydrAMINE 50MG/ML VIAL (J1200) IV PRN (12:35)
[2021-06-07] MEDS ORDERED: ALBUTEROL 90 MCG/ACT 8GM HFA INHALER INH PRN (12:35)
[2021-06-07] MEDS ORDERED: EPINEPHrine INJ 1 MG/ML 1ML AMP IM PRN (12:35)
[2021-06-07] MEDS ORDERED: methylPREDNISolone 125MG 2ML VIAL IV PRN (12:35)
[2021-06-07] MEDS ORDERED: CASIRIVIMAB (REGN10933) 600 MG, IMDEVIMAB (REGN10987) 600 MG in NS 250 ML IV ONE (13:15)
== END 2021-06-07 16:35 | disposition home or self-care (01) ==
LOC: M ICU 11:58 → M OPCLIICU 11:58
PROVIDERS: ATTEND Family Medicine
DX: U07.1 COVID-19 (principal)